=== PATIENT | male | born 1935 | race Caucasian/White ===

== ENCOUNTER → 2019-10-06 | Outpatient (CLI) | payer MEDICARE | END | disposition home or self-care (01) | LOC: CFH 15:43 | PROVIDERS: ATTEND Psychiatry & Neurology Neurology | DX: M51.37 Other intervertebral disc degeneration, lumbosacral region (principal); M51.34 Other intervertebral disc degeneration, thoracic region; M48.07 Spinal stenosis, lumbosacral region | CPT/HCPCS: 72148 ==